=== PATIENT | female | born 2000 | race Caucasian/White ===

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

== ENCOUNTER → 2023-07-14 | Outpatient (CLI) | payer BC ==
[~2023-07-14] MED LIST changes: -ESCI20TA PO; +ESCI20TA16 PO
== END ==
LOC: M WUC 11:34
PROVIDERS: ATTEND Internal Medicine
DX: M25.532 Pain in left wrist (principal)